=== PATIENT | female | born 1965 | race Caucasian/White ===

== ENCOUNTER 2024-05-15 14:46 | Observation (INO) | payer OTHER, SELFPAY ==
[2024-05-15] VITALS (9 sets, daily range): BP systolic 136–148; BP diastolic 91–107; BMI 24.6; BMI 23.8
--- NOTE | 2024-05-15 11:35 | ED.GENMED ---
History of Present Illness
General
Chief Complaint: Change in Mental Status
Time Seen by Provider: 05/15/24 11:21
History of Present Illness
History of Present Illness:
HPI: Early this morning, while was at work, the patient went over to her neighbors but neighbor noticed that she was acting strangely. It seemed that she cannot remember anything. She recalls being at their house also last night but has
poor recollection [place] from earlier today. She denies any pain but did have some vague right-sided abdominal discomfort earlier.
EXAM:
GENERAL: Well appearing in no distress
HEENT: Moist oral mucosa
CARDIOVASCULAR: No murmurs, normal heart rate, regular rhythm, No chest wall tenderness
PULMONARY: No respiratory distress, breath sounds are clear and equal
ABDOMEN: Soft with no peritoneal signs, no tenderness
NEUROLOGIC: Excellent strength all extremities, no coordination deficits, poor recent memory
PSYCHIATRIC: Normal affect and reasonable judgment
EXTREMITIES: Nontender, no edema, moves all extremities equally
SKIN: No rash, no lesions
TIME OF INITIAL ENCOUNTER: 11:20 AM
NUMBER AND COMPLEXITY OF PROBLEMS ADDRESSED AT THE ENCOUNTER
� Chronic conditions affecting care: High blood pressure, asthma, IBS, hypothyroidism
� Acute Exacerbation and/or Progression of Chronic Illness: This is an acute problem
� Differential Diagnosis includes: Transient global amnesia, TIA/CVA, hyponatremia, intracranial hemorrhage, UTI
AMOUNT AND/OR COMPLEXITY OF DATA TO BE REVIEWED AND ANALYZED
� I performed an independent evaluation of and my interpretation is:
EKG:
CT: CT head negative
X-rays:
Laboratory Studies: Urinalysis shows no evidence of infection, CBC and chemistries unremarkable
Other:
� Review of other/old records: I reviewed records. The patient was admitted here in November 2021 with exacerbation of asthma
� Clinical information was obtained by an independent historian: I spoke to , daughter, and neighbor at bedside
� Prescriptions/Medications Considered but not given:
� Further testing considered but not performed:
RISK OF COMPLICATIONS AND/OR MORBIDITY OR MORTALITY OF PATIENT MANAGEMENT
� Social determinants of health affecting care: Lives at home
� Discussion with other providers: Discussed with Dr. Florence agrees with using aspirin however the family or neighbor did give aspirin earlier in the day
� Escalation of care including admission/observation vs risk of discharge considered: Suspect transient global amnesia. Will plan to keep in the hospital for further evaluation.
Past History
Past History
ED Past Medical History: Hypothyroidism
ED Past Surgical History: None
Social History
Tobacco: Former smoker
Phy Exam
Physical Exam
Physical Exam:
See HPI
Course
Orders/Labs/Results
Orders:
Orders
05/15/24 11:25
Complete Blood Count/With Diff Urgent
Comprehensive Metabolic Panel Urgent
TSH Reflex To Free T4 Urgent
UA Reflex to Culture [Urinalysis Reflex To Culture] Urgent
Date Specimen was Collected: 05/15/24
Time Specimen was Collected: 11:22
05/15/24 11:34
CT Head W/o Iv Contrast Urgent
Comment:
Reason For Exam: alt ms memory loss
05/15/24 11:41
Add On- LAB Urgent
Tests Added?: tsh reflex fT4
05/15/24 12:01
Electrocardiogram (*1) Urgent
Reason for Study: TIA/Stroke
EKG- Treatment ONCE
05/15/24 12:36
Aspirin 325 mg PO NOW STA
Abnormal Lab Results
05/15/24
11:25
MPV 11.0 H fL
(7.4-10.4)
Monocytes % 11.0 H %
(1.7-9.3)
Eosinophils % 9.8 H %
(0-6)
BUN 20 H mg/dl
(7-17)
AST 40 H U/L
(1436)
05/15/24 11:25
05/15/24 11:25
Vital Signs
Initial and Last Documented VS:
Initial Vital Signs
BP
148/106
05/15/24 11:10
Last Documented Vital Signs
Temp Pulse Resp BP Pulse Ox
97.7 F 79 16 148/106 98
05/15/24 11:13 05/15/24 11:45 05/15/24 11:45 05/15/24 11:13 05/15/24 11:45
*Critical Care Note
Total Time (30-74mins, 75-104mins- exclusive of procedures): Not Applicable
ED Attending Note
-
Portions of this chart may have been created with voice recognition software.� Occasional wrong word or��sound alike� substitutions may have occurred due to the inherent limitations of voice recognition software.
Discharge Plan
Departure
Patient Disposition: Admit
Date of Disposition: 05/15/24
Time of Disposition: 12:28
Presentation/result/management discussed w/ accepting MD/DO: Hospitalist
Patient with high blood pressure during this ER visit?: Yes
Discharge Problem:
Transient global amnesia
Prescriptions:
No Action
cetirizine 10 MG tablet
10 mg PO DAILY
levothyroxine 50 MCG tablet
50 mcg PO DAILY AT 0700
montelukast 10 MG tablet
10 mg PO QPM
B-complex with vitamin C 1 EACH tablet
1 ea PO DAILY
cholecalciferol (vitamin D3) 1,000 UNITS tablet
1,000 units PO DAILY
hydrochlorothiazide 12.5 MG tablet
12.5 mg PO DAILY
coenzyme [id number] E [Co Q-10 (with Vit E)] 1 EACH capsule
1 ea PO DAILY
red yeast rice 600 MG tablet
1,200 mg PO DAILY
multivitamin with folic acid [Tab-A-Maris] 1 TABLET tablet
1 tab PO DAILY
coconut oil 1,000 MG capsule
1,000 mg PO DAILY
calcium carb-mag ox-zinc sulf 1 EACH tablet
1 ea PO DAILY
turmeric-turmeric root extract 1 EACH capsule
1 ea PO DAILY
Fexofenadine Hcl 180 MG Tablet
180 mg PO DAILY
Varenicline Tartrate 1 MG Tablet
1 mg PO BID
lisinopril 20 MG tablet
20 mg PO DAILY
albuterol sulfate 2.5 MG/3 ML solution for nebulization
2.5 mg inhalation R Q4HPRN PRN (Reason: shortness of breath) Qty: 50 0RF
dextromethorphan-guaifenesin 10 ML syrup
10 ml PO Q4HPRN PRN (Reason: Cough) 0RF
budesonide-formoterol [Symbicort] 1 PUFF HFA aerosol inhaler
2 puff inhalation R BID Qty: 1 1RF
tiotropium bromide [Spiriva Respimat] 1 PUFF mist
2 puff inhalation R DAILY Qty: 1 1RF
guaifenesin [Mucus Relief ER] 600 MG tablet extended release 12hr
600 mg PO Q12 Qty: 60 0RF
prednisone 10 MG tablet
10 mg PO Daily Qty: 30 0RF
Rx Instructions:
50 mg daily for 2 days
40mg daily for 2 days
30 mg daily for 2 days
20 mg daily for 2 days
10mg daily for 2 days
Referrals:
Diego Jenkins DO [Family Provider] -
Interventions
Interventions:
*Risk Screen - Suicide Last Done: 05/15/24 11:17
*General Assessment Last Done: 05/15/24 11:17
*Neglect/Abuse Screening Last Done: 05/15/24 11:17
ED- Fall Risk Assessment Last Done: 05/15/24 12:13
*ED COVID-19 Vaccine History Last Done: 05/15/24 11:17
ED- Neurological Assessment Last Done: 05/15/24 12:14
ED- Cardiac Assessment Last Done: 05/15/24 12:15
ED Swallowing Screen Last Done: 05/15/24 12:48
Discharge Date and Time
Print Language: GEORGIAN
[2024-05-15 11:36] LABS: % Basophils 1.7 % (0-2); % Eosinophils 9.8 % (0-6); % Immature Granulocytes 0.2 % (0-0.5); % Lymphocytes 21.2 % (20.5-51.1); % Neutrophils 56.1 % (42.2-75.2); Absolute Basophils 0.1 10^3/uL (0-0.2); Absolute Eosinophils 0.5 10^3/uL (0-0.7); Absolute Lymphocytes 1.2 10^3/uL (1.2-3.4); Absolute Monocytes 0.6 10^3/uL (0.1-0.6); Absolute Neutrophils 3.1 10^3/uL (1.4-6.5); Hemoglobin 15.9 g/dL (12.0-16.0); Mean Corp Hgb Conc. 34.6 g/dL (33.0-37.0); Mean Corpuscular Hgb 30.9 pg (27.0-31.0); Mean Corpuscular Volume 89.5 fL (81.0-99.0); Nucleated Red Blood Cells % 0 %; Platelet Count 240 10^3/uL (130-400); Red Blood Cell Count 5.14 10^6/uL (4.20-5.40); Red Cell Dist. Width 12.1 % (11.5-14.5); White Blood Cell Count 5.4 10^3/uL (4.8-10.8)
[2024-05-15 11:38] LABS: Urine Albumin Negative (Neg - Trace); Urine Bilirubin Negative (Negative); Urine Character Clear (Clear); Urine Color Yellow; Urine Glucose Negative (Negative); Urine Ketone Negative (Negative); Urine Leukocyte Negative (Negative); Urine Nitrite Negative (Negative); Urine Occult Blood Negative (Negative); Urine Specific Gravity 1.005 (<1.030); Urine Urobilinogen Negative (Neg - 1+)
[2024-05-15 11:50] LABS: ALT (SGPT) 35 U/L (0-35); AST (SGOT) 40 U/L (14-36); Albumin 4.7 g/dl (3.5-5.0); Alkaline Phosphatase 59 U/L (38-126); Blood Urea Nitrogen 20 mg/dl (7-17); Calcium 9.7 mg/dl (8.4-10.2); Carbon Dioxide 23 mmol/L (22-30); Chloride 103 mmol/L (98-107); Estimated Creatinine Clearance 83 ml/min; Glucose 76 mg/dl (70-99); Potassium 4.3 mmol/L (3.5-5.1); Sodium 140 mmol/L (135-145); Total Bilirubin 0.7 mg/dl (0.2-1.3); Total Protein 7.1 g/dl (6.3-8.2); eGFR > 60.00
--- NOTE | 2024-05-15 12:52 | W.PN.UPDATE ---
Update Note
Progress Note Update
This is an addendum to H&P written by KASSIDY Moseley
I saw and examined the patient.
The EMERGENCY DEPARTMENT RN's note was reviewed and I agree with the note.
Comment:
Ms. Donna Truong is a 58 yo woman with hx asthma/COPD, HTN, hypothyroidism was brought to the ER after neighbors noticed that she was acting strangely, as she could not remember anything.
Triage VS: T 97.7, P 75, RR 18, BP 148/106, SpO2 97%
LABS: WBC 5.4, Hg 15.9, PLT 240, Na 140, K+ 4.3, Cl 103, BUN 20, Cr 0.7
CT HEAD
IMPRESSION:
No acute intracranial abnormality.
Chronic pansinusitis.
On exam patient is awake, alert and now oriented. She is conversing normally with family. Feels symptoms mainly resolved. Neuro exam without focal deficits.
Concern for TGA
-admit to telemetry
-neuro checks
-s/p asa in ER
-MRI
-appreciate Neurology consult
*awaiting home med rec
Remainder of plan per PA note
--- NOTE | 2024-05-15 13:03 | HPS.HSE ---
Addendum entered and electronically signed by Cele Moseley PA-C 05/15/24 14:56:
Additional Assessment/Plan
Alcohol Use Disorder
-Continue thiamine and folic acid
-Continue alcohol withdrawal protocol
Original Note:
Family Physician
-
Family Physician: Diego Jenkins
Chief Complaint
-
Change in Mental Status
History of Present Illness
Patient is a 58 yo female with a hx of HTN, hypothyroidism, and asthma, who presents with altered mental status that began this morning. History provided by patient and patient's neighbor. She reports that she was completely fine last night but
awoke this morning not being able to remember anything. She then walked to her neighbor's house and the neighbor reports that patient was crying and distressed. Patient and neighbor note that she is improving and is beginning to recall things from
earlier today, and she was able to tell this fha underwriter that she woke up late this morning and called her doctor's office to cancel an appointment. She uses marijuana and drinks '12-16 oz' of wine each night. She denies fevers, chills, headache, vision
changes, muscle weakness, body pains, numbness or tingling, chest pain, palpitations, SOB, or n/v/d.
Medical History
Past Medical History
Past Medical History: Reports Other
Additional Past Medical History:
Essential Hypertension
Hyperlipidemia
Asthma
Hypothyroidism
Irritable Bowel Syndrome
ADHD
Past Surgical History: Reports Other
Additional Past Surgical History:
Varicose Veins Surgery
Social History
Tobacco: Other (Former Smoker - Currently Vaping)
Alcohol: Daily
Family History
Family History: Not pertinent
Allergies / Home Medications
Allergies reflects when Allergies were last updated in [employer].
Home Medications with original date entered in [employer]
Allergy/Medication List:
Allergies
Allergy/AdvReac Type Severity Reaction Status Date / Time
No Known Allergies Allergy Verified 05/15/24 11:12
Home Medications
cetirizine 10 mg tablet 10 mg PO DAILY Allergies 11/28/21
cholecalciferol (vitamin D3) 25 mcg (1,000 unit) tablet 2,000 units PO DAILY Supplement 11/28/21
levothyroxine 50 mcg tablet 50 mcg PO DAILY AT 0700 Thyroid 11/28/21
montelukast 10 mg tablet 10 mg PO QPM Allergies 11/28/21
multivitamin with folic acid 400 mcg tablet (Tab-A-Maris) 1 tab PO DAILY Supplement 11/28/21
aspirin 81 mg tablet,delayed release 162 mg PO DAILYPRN PRN chest pains 05/15/24
atomoxetine 100 mg capsule 100 mg PO DAILY 05/15/24
calcium carbonate 600 mg-vitamin D3 10 mcg (400 unit) tablet (Calcium 600 + D(3)) 1 tab PO DAILY 05/15/24
coQ10 (ubiquinol) 200 mg capsule 400 mg PO DAILY 05/15/24
cyanocobalamin (vitamin B-12) 1,000 mcg tablet 1,000 mcg PO DAILY 05/15/24
klyzsfbzkst-Y-Airpfwazjxkfwnbgwm 500 mg-200 mg tablet 1 tab PO DAILY 05/15/24
hydroxyzine pamoate 25 mg capsule 25 mg PO HSPRN PRN anixety 05/15/24
lisinopril 20 mg-hydrochlorothiazide 12.5 mg tablet 1 tab PO DAILY 05/15/24
plant stanol gabby 450 mg tablet 450 mg PO DAILY 05/15/24
rosuvastatin 10 mg tablet 10 mg PO DAILY 05/15/24
turmeric 400 mg capsule 400 mg PO DAILY 05/15/24
vitamin B complex-folic acid 0.4 mg tablet (B Complex 1 (with folic acid)) 1 tab PO DAILY 05/15/24
Review of Systems
-
A 12 point ROS was completed and negative except as noted: Yes
Constitutional: Denies Fever or Chills
Respiratory: Denies Cough or Trouble Breathing
Cardiac: Denies Chest Pain or Palpitations
Physical Exam
Vital Signs
Vital Signs
Temp Pulse Resp BP Pulse Ox
97.7 F 79 16 148/106 98
05/15/24 11:13 05/15/24 11:45 05/15/24 11:45 05/15/24 11:13 05/15/24 11:45
Physical Exam
General: Comfortable and Conversant
HEENT: Anicteric and Moist mucous membranes
Respiratory: Clear and Non Labored Respirations
Cardiac: S1/S2 and Regular Rhythm
GI: Soft, Non Tender and Non Distended
Musculoskeletal: No Clubbing, No Cyanosis and No Edema
Skin: Warm and Dry
Neuro: Awake, Alert, Oriented and No Motor Deficits; No Facial Droop
Psych: Calm
Laboratory Results
-
05/15/24 11:25
05/15/24 11:25
Laboratory Results
Total Bilirubin 0.7 mg/dl (0.2-1.3) 05/15/24 11:25
AST 40 U/L (14-36) H 05/15/24 11:25
ALT 35 U/L (0-35) 05/15/24 11:25
Alkaline Phosphatase 59 U/L (38-126) 05/15/24 11:25
Data Reviewed
-
CT Scan: Report Reviewed by me
Lab Data: Labs Reviewed by me
Impression/Plan
-
Acute Change in Mental Status, suspect TGA vs Hypertensive Encephalopathy vs TIA
-Consult Neurology
-Check Brain MRI, Carotid US and Echo
-Continue aspirin
Essential Hypertension
-Allow for permissive hypertension until tomorrow morning
-Continue lisinopril/HCTZ
Hyperlipidemia
-Continue Crestor
Asthma
-Continue montelukast
Hypothyroidism
-Continue lisinopril/HCTZ
ADHD
-Patient will need to bring in atomoxetine from home
DVT proph: SCDs
Code Status: Full Code
--- NOTE | 2024-05-15 13:15 | CON.NEURO4 ---
Consultation - Neurology 4
-
CONSULTING PHYSICIAN: Geraldo Mendieta MD
REFERRING PHYSICIAN: Hospitalist
DICTATED BY: Geraldo Mendieta MD
DATE/TIME OF REQUEST: May 15, 2024
DATE/TIME OF CONSULTATION: May 15, 2024 1300
Reason for Consultation: Altered mental status
History of Present Illness:
This is a 58 year old right) handed female) who has presented to the hospital with (chief complaint) of altered mental status. She gives a history of hypertension attention deficit disorder asthma COPD who had been in usual state of health till
this morning. When she woke up she left her home and went across to her neighbors place. She was knocking at the window initially. She was then directed to the front door. And she reported to her neighbor and her friend that she could not
remember where she was, and what she did this morning. She was unable to recall the day month of the year. She knew her neighbors name but could not remember what happened the night before. She repeatedly asked the neighbor the same questions and
had to be redirected repeatedly. She does not remember taking her morning medications. Her neighbor gave her 2 tablets of aspirin.
She then brought her to the emergency room. Following emergency room admission her memory started to improve. But she is restless and fidgety. She also has some abdominal discomfort.
No history of falls or head injuries no loss consciousness or seizures no difficulty speaking swallowing incoordination or gait impairment.
At the time of my examination she is at baseline cognition with no cranial nerve or motor deficits.
Past Medical History: Hypertension attention deficit disorder asthma COPD
Surgical History: Does not recall
Family History: Noncontributory
Social History: lives at home with her . Occasional glass of wine. Occasional marijuana
Allergies: None
Home Medications: See addendum
Review of Symptoms:
Patient denies any fever, headache, chest pain, shortness of breath, GI or symptoms.
�Per the HPI.�All systems are reviewed negative except above.
�-
Vital Signs:
The patient has a Temp 36.5 C Pulse79 Resp16 BP 148/106 Pulse Ox 98
Physical Exam:
The patient is afebrile, heart sounds S1 and S2 are (regular , and chest is clear to auscultation bilaterally.
- If not clear, describe.
Neurologic Examination:
The patient is awake, alert and oriented x person place and time. She) is able to follow commands and answer questions appropriately. Speech is fluent with intact comprehension reading repetition there is no aphasia or dysarthria.
On cranial nerve assessment, pupils are 3 mm bilateral, round and reactive to light and accommodation. Visual caban are full. Extraocular movements are intact. Facial sensations are intact and bilaterally symmetrical, there is no facial asymmetry.
Hearing is intact bilaterally to normal conversation volume. Tongue palate and uvula are midline. Sternocleidomastoid strengths are full bilaterally. Motor strengths are 5/5 bilateral upper and lower extremities on medical research Sabael scale.
There is no drift or involuntary movement noted. Deep tendon reflexes are 2+ bilateral upper and lower extremities and Babinski is absent bilaterally. Sensations of pain, touch, temperature and vibration are intact and bilaterally symmetrical. There
was no extinction noted on double simultaneous stimulation. Coordination is intact by finger to nose bilaterally.
Lab Results: Addendum
Neuro Imaging: CT head shows normal cortical architecture mild cortical atrophy normal ventricles
Impression:
Mrs. CHRISTIAN HASSAN is a 58 year old F who has presented to the hospital with chief complaint) of altered mental status secondary to
Differentials for the patient's presentation include:
1. Transient global amnesia
2. Hypertensive crisis
Patient has the following risk factors for their symptoms:
IV Tenecteplase/IAT candidacy
Recommendations:
1. Aspirin 81 mg
2. MRI brain
3. Carotid Doppler
4. Echocardiogram
5. Statin therapy
6. Permissive hypertension for 24 hours with gradual reduction subsequently
Discussed patient care with: ER and patient
Allergies
-
Allergies
Allergy/AdvReac Type Severity Reaction Status Date / Time
No Known Allergies Allergy Verified 05/15/24 11:12
Vital Signs and Labs
-
Vital Signs and Labs:
Vital Signs
Temp Pulse Resp BP Pulse Ox
36.5 C 79 16 148/106 98
05/15/24 11:13 05/15/24 11:45 05/15/24 11:45 05/15/24 11:13 05/15/24 11:45
Lab Results
05/15/24 11:25
05/15/24 11:25
Sodium 140 mmol/L (135-145) 05/15/24 11:25
Potassium 4.3 mmol/L (3.5-5.1) 05/15/24 11:25
BUN 20 mg/dl (7-17) H 05/15/24 11:25
Glucose 76 mg/dl (70-99) 05/15/24 11:25
Calcium 9.7 mg/dl (8.4-10.2) 05/15/24 11:25
Medications
-
Home Medications
�Medication �Instructions �Recorded
B-complex with vitamin C 1 ea PO DAILY Supplement 11/28/21
Fexofenadine Hcl 180 mg PO DAILY Allergies 11/28/21
Varenicline Tartrate 1 mg PO BID Smoking cessation 11/28/21
calcium carbonate 333 mg-magnesium 1 ea PO DAILY Supplement 11/28/21
oxide 133 mg-zinc sulf 5 mg tablet
cetirizine 10 mg tablet 10 mg PO DAILY Allergies 11/28/21
cholecalciferol (vitamin D3) 25 1,000 units PO DAILY Supplement 11/28/21
mcg (1,000 unit) tablet
coconut oil 1,000 mg capsule 1,000 mg PO DAILY Supplement 11/28/21
coenzyme [id number] E 100 mg-5 1 ea PO DAILY Supplement 11/28/21
unit capsule (Co Q-10 (with Vit E))
hydrochlorothiazide 12.5 mg tablet 12.5 mg PO DAILY Fluid 11/28/21
retention/Swelling
levothyroxine 50 mcg tablet 50 mcg PO DAILY AT 0700 Thyroid 11/28/21
lisinopril 20 mg tablet 20 mg PO DAILY Blood pressure 11/28/21
montelukast 10 mg tablet 10 mg PO QPM Allergies 11/28/21
multivitamin with folic acid 400 1 tab PO DAILY Supplement 11/28/21
mcg tablet (Tab-A-Maris)
red yeast rice 600 mg tablet 1,200 mg PO DAILY Supplement 11/28/21
turmeric 450 mg-turmeric root 1 ea PO DAILY Supplement 11/28/21
extract 50 mg capsule
albuterol sulfate 2.5 mg/3 mL 2.5 mg (3 mL) inhalation R Q4HPRN 12/02/21
(0.083 %) solution for nebulization PRN shortness of breath ##50
budesonide-formoterol HFA 160 2 puff inhalation R BID ##1 12/02/21
mcg-4.5 mcg/actuation aerosol
inhaler (Symbicort)
dextromethorphan-guaifenesin 10 10 ml PO Q4HPRN PRN Cough 12/02/21
mg-100 mg/5 mL oral syrup
guaifenesin 600 mg tablet, 600 mg PO Q12 #60 tabs 12/02/21
extended release 12 hr (Mucus
Relief ER)
prednisone 10 mg tablet 10 mg PO Daily #30 tabs 12/02/21
tiotropium bromide 2.5 2 puff inhalation R DAILY #1 puff 12/02/21
mcg/actuation mist for inhalation
(Spiriva Respimat)
[2024-05-15 13:20] LABS: TSH Reflex To Free T4 4.21 uIU/ml (0.47-4.68)
[2024-05-15 15:05] LABS: Phosphorus 3.9 mg/dl (2.5-4.5)
[2024-05-15 15:06] LABS: Alcohol None Detected
[2024-05-15 15:14] LABS: Amphetamines Negative (Negative); Barbiturates Negative (Negative); Benzodiazepines Negative (Negative); Buprenorphine Negative (Negative); Cocaine Negative (Negative); Marijuana Negative (Negative); Methadone Negative (Negative); Methamphetamines Negative (Negative); Opiates Negative (Negative); Phencyclidine Negative (Negative); Tricyclic Antidepressants Negative (Negative)
[2024-05-15] MEDS: THIAMINE INJECTION 200 MG IV (20:33)
[2024-05-15] MEDS: ATARAX 25 MG PO (23:12)
[2024-05-15] MEDS: MYLICON 80 MG PO (23:23)
[2024-05-16] MEDS: TYLENOL 650 MG PO (03:07)
[2024-05-16 03:12] VITALS: BP 131/92
[2024-05-16] MEDS: SYNTHROID 50 MCG PO (07:01)
[2024-05-16 07:13] LABS: Hematocrit 43.3 % (37.0-47.0); Hemoglobin 14.8 g/dL (12.0-16.0); Mean Corp Hgb Conc. 34.2 g/dL (33.0-37.0); Mean Corpuscular Hgb 30.3 pg (27.0-31.0); Mean Corpuscular Volume 88.5 fL (81.0-99.0); Platelet Count 233 10^3/uL (130-400); Red Blood Cell Count 4.89 10^6/uL (4.20-5.40); Red Cell Dist. Width 12.2 % (11.5-14.5); White Blood Cell Count 7.8 10^3/uL (4.8-10.8)
[2024-05-16 07:17] LABS: INR 0.97; PT 12.9 Sec (11.4-14.6)
[2024-05-16] MEDS: CRESTOR 10 MG PO (07:39)
[2024-05-16] MEDS: ZESTRIL 20 MG PO (07:39)
[2024-05-16] MEDS: ORETIC 12.5 MG PO (07:39)
[2024-05-16] MEDS: ZYRTEC 10 MG PO (07:39)
[2024-05-16] MEDS: LOW STRENGTH ASPIRIN 81 MG PO (07:39)
[2024-05-16] MEDS: FOLVITE 1 MG PO (07:39)
[2024-05-16] MEDS: THIAMINE INJECTION 200 MG IV (07:40)
[2024-05-16 07:49] VITALS: BP 120/79
[2024-05-16 08:03] LABS: Blood Urea Nitrogen 22 mg/dl (7-17); Calcium 9.2 mg/dl (8.4-10.2); Carbon Dioxide 18 mmol/L (22-30); Chloride 107 mmol/L (98-107); Estimated Creatinine Clearance 83 ml/min; Glucose 88 mg/dl (70-99); HDL Cholesterol 44 mg/dl; LDL Cholesterol, Calculated 84 mg/dl; Potassium 4.5 mmol/L (3.5-5.1); Sodium 140 mmol/L (135-145); Total Cholesterol 163 mg/dl (50-199); Triglyceride 177 mg/dl (10-149); Very Low Density Lipoprotein 35 mg/dl (0-30); eGFR > 60.00
[2024-05-16 09:03] LABS: Glycohemoglobin (HgbA1c) 5.2 % (4.0-5.6)
--- NOTE | 2024-05-16 10:05 | W.PN.HOSP.TC ---
Addendum entered and electronically signed by Sae Silverio DO 05/16/24 13:06:
Brain MRI negative for stroke.
Minimal white matter leukoaraiosis in both cerebral hemispheres. Moderate paranasal sinus mucosal disease.
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
Patient denies neck pain or radicular symptoms. She states she is aware of her cervical spine disease and it was looked at in the past. Did have neck pain in the past but that resolved. Informed patient to follow-up with primary care doctor and
consider neurosurgery consult as outpatient if her pain returns or she gets radicular symptoms.
Carotid ultrasound without significant stenosis.
Echocardiogram unremarkable as per discussion with Dr. Gomez.
Medically stable for discharge today. Continue aspirin and statin. Strict blood pressure control. Outpatient follow-up. Discussed with patient in detail.
Original Note:
Today's Communication/Plan
-
Follow-up echocardiogram, brain MRI
Assessment / Plan
Assessment / Plan
Gen-AAOx3, NAD
HEENT-NC, AT, anicteric, clear oral mm
Neck-supple
CV-reg, no M, +S1/S2
Lungs-clear B/L
Abd-soft, NT, ND
Ext-no edema
Musculoskeletal-no cyanosis, clubbing
Skin-warm and dry
Neuro-grossly non-focal
Psych-calm, cooperative
Transient amnesia - Suspect transient global amnesia. Brain MRI pending to rule out stroke. Carotid ultrasound completed, report pending. Echocardiogram report pending. Denies any symptoms currently. Feels back to baseline.
Essential hypertension with hypertensive urgency -blood pressure improved. States she has been compliant with lisinopril/HCTZ 20 mg / 12.5 mg once daily. Lisinopril resumed.
Metabolic acidosis -mild anion gap noted, 15. Bicarbonate 18. Urine ketones negative. Etiology unclear. Monitor for now.
Alcohol use disorder -monitor for any withdrawal symptoms. Continue folic acid, thiamine.
Hypothyroidism - continue levothyroxine.
Hyperlipidemia -continue rosuvastatin.
Mild intermittent asthma -stable.
ADHD -continue home medications.
Full code
Anticipated Discharge: Within 24 hours
Subjective/Interval History
-
Date of Service: May 16, 2024
Patient seen and examined. No complaints. Feels better.
Objective Data
-
Labs:
Laboratory Results
05/16/24
06:41
WBC 7.8
Hgb 14.8
Hct 43.3
Plt Count 233
PT 12.9
INR 0.97
APTT 33.0
Sodium 140
Potassium 4.5
Chloride 107
Carbon Dioxide 18 L
BUN 22 H
Creatinine 0.7
Glucose 88
Calcium 9.2
Vital Signs:
Vital Signs
Temp Pulse Resp BP Pulse Ox
97.5 F 77 16 120/79 96
05/16/24 07:49 05/16/24 07:49 05/16/24 07:49 05/16/24 07:49 05/16/24 09:43
I&O
05/15/24 05/16/24 05/17/24
06:59 06:59 06:59
Intake Total 960 / 960
Balance 960 / 960
Review of Systems
-
History Source: Patient
All other systems: Reviewed and negative
[2024-05-16 10:25] VITALS: BP 131/87; PULSE 80; O2SAT 99
--- NOTE | 2024-05-16 11:41 | PTOTSP ---
PATIENT ABLE TO FUNCTION INDEPENDENTLY ON LEVEL SURFACES WELL ELEVATIONS REQUIRING NO FURTHER ACUTE CARE SKILLED P.T. WILL DISCHARGE FROM P.T. SERVICES.
--- NOTE | 2024-05-16 11:42 | PTOTSP ---
pt currently demonstrates ability to complete simple ADLs, functional transfers, ambulation with no assistance. no overt deficits noted regarding functional ability. no acute OT needs identified, will sign off.
--- NOTE | 2024-05-16 11:44 | W.PN.NEURO.1 ---
Today's Communication / Plan
-
Patient may go home on aspirin and statin
Neuro Assessment/Plan
Assessment
58-year-old lady with history of hypertension who had a brief episode of confusion and disorientation with normal MRI study of the brain
Plan
Continue aspirin
Strict blood pressure control
Avoid marijuana
Subjective/Objective
Subjective Data
Date of Service: May 16, 2024
Pat is doing well. No new complaints. Memory and cognition are intact.
Objective Data
Vital Signs
Temp Pulse Resp BP Pulse Ox
36.4 C 77 16 120/79 96
05/16/24 07:49 05/16/24 07:49 05/16/24 07:49 05/16/24 07:49 05/16/24 09:43
Lab Results
05/16/24 06:41
05/16/24 06:41
PT 12.9 Sec (11.4-14.6) 05/16/24 06:41
INR 0.97 05/16/24 06:41
APTT 33.0 Sec (23.4-35.0) 05/16/24 06:41
Sodium 140 mmol/L (135-145) 05/16/24 06:41
Potassium 4.5 mmol/L (3.5-5.1) 05/16/24 06:41
BUN 22 mg/dl (7-17) H 05/16/24 06:41
Glucose 88 mg/dl (70-99) 05/16/24 06:41
Calcium 9.2 mg/dl (8.4-10.2) 05/16/24 06:41
Phosphorus 3.9 mg/dl (2.5-4.5) 05/15/24 11:25
LDL Cholesterol, Calc 84 mg/dl 05/16/24 06:41
Ur Buprenorphine Negative (Negative) 05/15/24 11:25
Patient Allergies
No Known Allergies Allergy (Verified 05/15/24 11:12)
Physical Exam
-
General: Well Developed, Well Nourished and Comfortable
Eyes: Able to visualize OU
HEENT: Normocephalic and Atraumatic
Neck: No Bruits Bilaterally and Full Range of Motion
Respiratory: Clear to Auscultation
Cardiac: Regular Rhythm
GI: Normal Bowel Sounds
Skin: Unremarkable
Extremities: No Clubbing, No Cyanosis and No Edema
Psych: Unremarkable
Extended Neurological Exam
Mood & Affect: Mood Unremarkable and Affect Unremarkable
Attention Span & Concentration: Awake, Alert, Interactive and No Difficulty with 2 Step Request
Memory: Able to Recall and Recalls Short Term
Tremor: Hand Tremor Absent and Head Tremor Absent
Involuntary Movement: None
Speech: Quality Unremarkable, Quantity Unremarkable and Rate of Production Unremarkable
Cranial Nerve II: Left Eye: Pupillary Reactivity Unremarkable, Pupillary Size Unremarkable and Visual Noe Grossly Intact
Cranial Nerve II: Right Eye: Pupillary Reactivity Unremarkable, Pupillary Size Unremarkable and Visual Noe Grossly Intact
Cranial Nerves III, IV, : Extraocular Movement: Extraocular Movement Full in all Directions
Cranial Nerve V: Facial Sensation: Intact to Light Touch
Cranial Nerve VII: Facial Symmetry: Normal Facial Symmetry
Cranial Nerve VIII: Hearing: Unremarkable Hearing to Normal Conversational Volume
Cranial Nerves IX, X: Palate Movement: Palate Elevation Symmetric
Cranial Nerve XI: Shoulder Shrug: Unremarkable
Cranial Nerve XII: Tongue Protusion: Midline
Muscle Strength, Overall: Full Throughout
Muscle Bulk & Tone: Bulk Unremarkable
Pronator Drift: No Drift in Upper Extremities and No Drift in Lower Extremities
Deep Tendon Reflexes: Unremarkable Throughout
Cold Sensation: Unremarkable
Vibration Sensation: Unremarkable
Touch Sensation: Unremarkable
Coordination: [id number] Testing Unremarkable
Babinski Sign: Absent Bilaterally
Gait & Station: Up from Seated Without Problem, Up from Lying with Difficulty and Romberg Test Negative
Modified Wilmer Score (MRS)
-
Modified Wilmer Scale (mRS): No symptoms
Score: 0
Data Reviewed
-
MRI Head: Image Reviewed (WNL)
[2024-05-16 11:46] VITALS: BP 132/92
--- NOTE | 2024-05-16 12:12 | W.PN.UPDATE ---
Update Note
Progress Note Update
Kyle VILLAREALD: Consider MRI C-Spine and follow up with NeuroSurg if there is pain and stiffness in the neck with arm weakness
--- NOTE | 2024-05-16 13:04 | W.DS.TRANS ---
DC Summary - [employer]
-
Discharge Instructions:
Discharge Diagnosis/Procedures Transient global amnesia
Diet Low Cholesterol,Low Fat
Activity As tolerated
Driving Restrictions As prior to admission
Bathing Restrictions None
Instructions:
Stand-Alone Forms:
Changes to Home Medications: No
Discharge Medications:
DC Medications w/original date entered in [facility]!
cetirizine 10 mg tablet 10 mg PO DAILY Allergies 11/28/21
cholecalciferol (vitamin D3) 25 mcg (1,000 unit) tablet 2,000 units PO DAILY Supplement 11/28/21
levothyroxine 50 mcg tablet 50 mcg PO DAILY AT 0700 Thyroid 11/28/21
montelukast 10 mg tablet 10 mg PO QPM Allergies 11/28/21
multivitamin with folic acid 400 mcg tablet (Tab-A-Maris) 1 tab PO DAILY Supplement 11/28/21
atomoxetine 100 mg capsule 100 mg PO DAILY Attn deficit disorder 05/15/24
calcium carbonate 600 mg-vitamin D3 10 mcg (400 unit) tablet (Calcium 600 + D(3)) 1 tab PO DAILY Supplement 05/15/24
coQ10 (ubiquinol) 200 mg capsule 400 mg PO DAILY Supplement 05/15/24
cyanocobalamin (vitamin B-12) 1,000 mcg tablet 1,000 mcg PO DAILY Supplement 05/15/24
hydroxyzine pamoate 25 mg capsule 25 mg PO HSPRN PRN anixety 05/15/24
lisinopril 20 mg-hydrochlorothiazide 12.5 mg tablet 1 tab PO DAILY Blood Pressure 05/15/24
rosuvastatin 10 mg tablet 10 mg PO DAILY High Cholesterol 05/15/24
turmeric 400 mg capsule 400 mg PO DAILY Supplement 05/15/24
vitamin B complex-folic acid 0.4 mg tablet (B Complex 1 (with folic acid)) 1 tab PO DAILY Supplement 05/15/24
aspirin 81 mg chewable tablet 81 mg PO DAILY #0 tabs 05/16/24
Home Medication Changes
Pending Results: No
--- NOTE | 2024-05-16 13:31 | CM ---
Alert awake oriented independent pt who lives with in a 2 story with 1 step to enter and 12 steps to bedroom.She was offered substance abuse counseling and VN she declined both.Observation letter given explained signed on chart.
No adaptive devices.
[facility]
PCP Dr Jenkins
PLAN Home no needs
== END 2024-05-16 14:10 | disposition home or self-care (01) ==
LOC: 3 WEST ACU 14:46
PROVIDERS: Physician Assistant Medical; ADMITTING PHYSICIAN Student in an Organized Health Care Education/Training Program; ATTENDING PHYSICIAN Hospitalist; CONSULT PHYSICIAN Psychiatry & Neurology Neurology; EMERGENCY PHYSICIAN Emergency Medicine; FAMILY PHYSICIAN Family Medicine; REFERRING PHYSICIAN Nurse Practitioner Adult Health
DX: G45.4 Transient global amnesia (principal); R41.82 Altered mental status, unspecified; I10 Essential (primary) hypertension; I16.0 Hypertensive urgency; E87.20 Acidosis, unspecified; F10.10 Alcohol abuse, uncomplicated; J45.20 Mild intermittent asthma, uncomplicated; M50.022 Cervical disc disorder at C5-C6 level with myelopathy; K58.9 Irritable bowel syndrome, unspecified; M47.812 Spondylosis without myelopathy or radiculopathy, cervical region; E78.5 Hyperlipidemia, unspecified; F90.9 Attention-deficit hyperactivity disorder, unspecified type; F12.90 Cannabis use, unspecified, uncomplicated; I70.0 Atherosclerosis of aorta; I34.81 Nonrheumatic mitral (valve) annulus calcification; I67.81 Acute cerebrovascular insufficiency; E03.9 Hypothyroidism, unspecified; J32.4 Chronic pansinusitis; Z79.890 Hormone replacement therapy; Z87.891 Personal history of nicotine dependence; Z79.52 Long term (current) use of systemic steroids; Z79.51 Long term (current) use of inhaled steroids
CPT/HCPCS: 70450; 70551; 80048; 80053; 80061; 80306; 81003; 82077; 83036; 83735; 84100; 84443; 85025; 85027; 85610; 85730; 92523; 93005; 93306; 93880; 97162; 97165; 99285; G0378